=== PATIENT | female | born 1955 | race Caucasian/White ===

== ENCOUNTER 2016-04-23 10:58 | Emergency (ER) | payer OTHER ==
[~2016-04-23] VITALS: Ht 162.6 cm; Wt 57.2 kg
[~2016-04-23 10:58] MED LIST: ALPRAZOLAM2 MG PO; ATRIPLA TABLET1 EACH PO; LEXAPRO20 MG PO; LYRICA75 MG PO; OXYCODONE HCL10 MG PO; ZOFRAN4 MG PO
[2016-04-23] MEDS ORDERED: XANAX XR2 MG PO (11:12)
[2016-04-23] MEDS ORDERED: ZOFRAN8 MG PO (11:13)
[2016-04-23] MEDS ORDERED: OXYCODONE HCL10 MG PO (11:14)
[2016-04-23] MEDS ORDERED: ODEFSEY TABLET1 EACH PO (11:14)
[2016-04-23] MEDS ORDERED: LYRICA150 MG PO (11:14)
[2016-04-23] MEDS ORDERED: BENADRYL25 MG PO (11:15)
[2016-04-23] MEDS ORDERED: TESSALON200 MG PO (11:15)
[2016-04-23 12:00] LABS: EOSINOPHIL (%) 0.5 % (0-5); HEMATOCRIT 36.1 % (36.0-46.0); LYMPHOCYTE COUNT 0.4 K/uL (1.0-2.8); MCH 33.6 PG (29.0-34.0); MCHC 34.1 G/DL (30.0-36.0); MCV 98.6 FL (83-99); MEAN PLAT.VOLUME 11.7 uM^3 (9.5-12.4); MONOCYTE (%) 8.7 % (3-12); MONOCYTE COUNT 0.2 K/uL (0-0.8); NEUTROPHIL (%) 70.2 % (45-76); NEUTROPHIL COUNT 1.5 K/uL (1.8-6.4); RBC DIS.WIDTH-CV 12.8 % (11.8-14.6); RBC DIS.WIDTH-SD 44.6 % (39-53); RED BLOOD COUNT 3.66 M/uL (3.80-5.20)
[2016-04-23 12:02] LABS: PLATELET COUNT 99 K/uL (156-360); WHITE BLOOD COUNT 2.2 K/uL (4.1-10.2)
[2016-04-23 12:11] LABS: CHLORIDE 105 mEq/L (99-109); POTASSIUM 4.3 mEq/L (3.7-5.4); SODIUM 136 mEq/L (136-147)
[2016-04-23 12:13] LABS: GLUCOSE 91 mg/dL (70-99)
[2016-04-23 12:14] LABS: ANION GAP 10 MEQ/L (2-14)
[2016-04-23 12:15] LABS: TOTAL BILIRUBIN 0.4 mg/dL (0.0-1.0)
[2016-04-23 12:16] LABS: ALKALINE PHOSPHATASE 72 IU/L (3-129)
[2016-04-23 12:18] LABS: GFR ESTIMATE (CALCULATED) 49 mL/min/; UREA NITROGEN (BUN) 10 mg/dL (9-23)
[2016-04-23 13:24] LABS: INFLUENZA A VIRAL ANTIGEN POSITIVE; INFLUENZA B VIRAL ANTIGEN NEGATIVE
[2016-04-23] MEDS ORDERED: TAMIFLU75 MG PO (13:41)
[2016-04-23 13:57] VITALS: BP 114/87
== END 2016-04-23 13:58 | disposition home or self-care (01) ==
LOC: EME → EDBD 10:58 → EME 10:58
PROVIDERS: Emergency Medicine
DX: J10.1 Influenza due to other identified influenza virus with other respiratory manifestations (principal); Z21 Asymptomatic human immunodeficiency virus [HIV] infection status; B19.20 Unspecified viral hepatitis C without hepatic coma; F17.200 Nicotine dependence, unspecified, uncomplicated
CPT/HCPCS: 71020; 80053; 85025; 87502; 99281; 99285; J2405; J7030